=== PATIENT | male | born 2000 | race Two or more races ===

== ENCOUNTER 2018-02-13 23:25 | Emergency (ER) | payer OTHER ==
[~2018-02-13] VITALS: Ht 167.6 cm; Wt 68.2 kg
[2018-02-13 23:44] VITALS: BP 150/78
== END 2018-02-14 00:03 | disposition home or self-care (01) ==
LOC: ER 23:27
DX: M54.2 Cervicalgia (principal); F12.90 Cannabis use, unspecified, uncomplicated
CPT/HCPCS: 99281

== ENCOUNTER 2024-10-23 19:51 | Emergency (ER) | payer SELFPAY ==
[~2024-10-23] VITALS: Ht 170.2 cm; Wt 59.8 kg
[2024-10-23] MEDS ORDERED: LIDOcaine 1% 30ml preserv. free vial SQ STA (20:18)
[2024-10-23 20:52] VITALS: BP 134/80; PULSE 70; RESP 18; TEMP 98.6; O2SAT 99
== END 2024-10-23 20:53 | disposition home or self-care (01) ==
LOC: ER 19:52
DX: S01.511A Laceration without foreign body of lip, initial encounter (principal); F12.90 Cannabis use, unspecified, uncomplicated; X58.XXXA Exposure to other specified factors, initial encounter; Y93.71 Activity, boxing; Y92.89 Other specified places as the place of occurrence of the external cause; Y99.8 Other external cause status
CPT/HCPCS: 12011; 12013; 99282; A6449

== ENCOUNTER 2025-07-09 22:46 | Inpatient (IN) | payer OTHER ==
[~2025-07-09] VITALS: Ht 167.6 cm; Wt 70.0 kg
--- NOTE | 2025-07-09 23:28 | RADIOLOGY REPORT ---
CLINICAL HISTORY: CP. TECHNIQUE: Single frontal view of the chest was obtained. COMPARISON: None available. FINDINGS: DEVICES/LINES/TUBES: None. LUNGS: Clear. PLEURA: No pneumothorax or pleural effusion. MEDIASTINUM/OTHER: Normal heart size and mediastinal contours. Trachea is midline. BONES: No acute osseous abnormality. Multiple fractured median sternotomy wires. UPPER ABDOMEN: Unremarkable. OTHER: Multiple surgical clips project over the mediastinum. IMPRESSION: No acute cardiopulmonary process.
[2025-07-09 23:32] LABS: MEAN PLATELET VOLUME 9.6 FL (7.4-10.4); RED CELL DISTRIBUTION WIDTH 13.7 % (11.5-14.5)
[2025-07-09 23:34] LABS: CREATININE 1.80 MG/DL (0.60-1.10); eCRCL 56 ML/MIN; eGFR 46 ML/MIN
[2025-07-09 23:40] LABS: TOTAL CARBON DIOXIDE 9.6 MMOL/L (24-32)
[2025-07-10] MEDS ORDERED: dextrose 50%-water 50ml dispensing syringe IV PRN (00:05)
[2025-07-10] MEDS ORDERED: potassium Cl 40MEQ/1/2NS 520ml 520 ML IV PRN (00:05)
[2025-07-10] MEDS ORDERED: ringers solution, lacted 1,000 ML IV SCH (00:05)
[2025-07-10] MEDS ORDERED: potassium Cl 40MEQ/270ML bag 270 ML IV PRN (00:05)
[2025-07-10] MEDS ORDERED: Insulin Reg/NS 100units/100mL 100 ML IV SCH (00:05)
[2025-07-10] MEDS ORDERED: magnesium sulf-water 2g/50mL 50 ML IV PRN (00:05)
[2025-07-10] MEDS ORDERED: sodium phos 15mmol/D5 255mL 255 ML IV PRN (00:05)
[2025-07-10] MEDS ORDERED: iohexol 300mg/ml 100ml inj. ONE (00:06)
[2025-07-10] MEDS: ringers solution, lacted 1,000 ML IV ONE (00:15)
[2025-07-10 00:39] LABS: PHOSPHORUS 7.5 MG/DL (2.3-4.5)
[2025-07-10] MEDS: ringers solution, lacted 1,000 ML IV SCH ×2 (00:45→02:54)
--- NOTE | 2025-07-10 01:06 | Physician Documentation ---
History of Present Illness ~ Chief Complaint: Seizure Stated Complaint: SEIZURE Time Seen by MD: 00:01 Mode of Arrival: POV HPI Patient is a very pleasant 24-year-old male that presents to the emergency department for evaluation of possible seizure generally feeling unwell and persistent nausea and vomiting x3 days. Patient reports that he has a very heavy drinker and has increased his alcohol consumption over the course of the last week drinking morning tonight. Patient reports he was not feeling well over the last couple of days so decided to stopped drinking yesterday. Since that time patient reports that he has become more nauseated progressive vomiting reports that he maybe had a seizure earlier today while walking to the restroom but is unsure. Patient denies any past medical history other than significant alcohol use and marijuana use. Patient does not take any medications. Patient reports that he has attempted to stop drinking 1 other time and experienced significant alcohol withdrawal during that time. Patient reports his abdomen feels very distended and full. Patient reports last bowel movement was yesterday although it was firm maybe considered to be constipation. Patient denies headache dizziness shortness of breath chest pain. Patient does report possible fever and chills over the last 24 hours. No other symptoms reported at this time. Medication Reconciliation Allergies: Coded Allergies: No Known Allergies (Unverified , 02/13/18) Past Medical History Past Medical History: *CARDIOVASCULAR* Other Past Surgical History: Heart surgery Alcohol Use: None Drug Use: marijuana Review of Systems ROS As stated above in the HPI, otherwise all systems are reviewed and negative. Physical Exam Vital Signs: Temperature: 97.6, Source: Oral, Heart Rate: 129, Respiratory Rat e: 24, BP: 168/106, Pulse Oximetry: 98, Weight: 70.000 Oxygen Flow Rate: 0 Physical Exam VITALS: Reviewed and as above. GENERAL: Alert, no apparent distress. HEENT: Normocephalic, atraumatic, PERRL, EOMI, dry mucosa, no erythema RESPIRATORY: Lungs clear, normal breath sounds, no respiratory distress. CHEST: No accessory muscle use, no retractions CV: Regular rate, rhythm, no edema, no murmur, No: JVD GI: Mildly firm and tender with palpation, bowels sounds present, no rebound, guarding, or rigidity. BACK: No CVA tenderness, or swelling MUSCULOSKELETAL No deformities, no edema SKIN: Warm and dry, no rash NEURO: Oriented x4, No motor or sensory deficit, mildly tremulous during examination. PSYCH: Normal mood and affect, no agitation Progress Results/Orders Results/Orders Orders - GELACIO EUBANKS MD Chest,Single View (07/09/25 23:01) Monitor (07/09/25 23:01) Saline Lock (07/09/25 23:01) Oxygen (07/09/25 23:01) Culture Blood (07/10/25 00:22) Saline Lock (07/10/25 00:22) Completed Orders - GELACIO EUBANKS MD Chest,Single View (07/09/25 23:01) Cbc/Diff (07/09/25 23:) Electrocardiogram (07/09/25 23:) Hs Troponin I W Calculations (07/09/25 23:01) CMP (07/09/25 23:09) Lipase (07/09/25 23:09) MG (07/09/25 23:09) PHOS (07/09/25 23:09) Thiamine Tablet (Thiamine Tablet) (07/10/25 08:00) Hgb A1c (07/09/25 23:09) Ua W/Microscopic, Cult If Ind (07/10/25 01:57) Medications Received in ER Medications (Trade) Dose Ordered Sig/Sergio Route PRN Reason Start Time Stop Time Status Last Admin Dose Admin Lactated Ringer's 1,000 ml @ 1,000 mls/hr Q1H IV 07/10/25 00:05 07/10/25 01:02 DC 07/10/25 00:45 1,000 MLS/HR (Ativan inj) 1.5 mg ONCE ONCE IV 07/10/25 00:55 07/10/25 00:59 DC 07/10/25 01:23 1.5 MG Vital Signs 07/09/25 07/10/25 07/10/25 07/10/25 22:53 00:02 00:08 01:23 Temp 97.6 97.6 Pulse 160 129 Resp 18 24 22 B/P (MAP) 152/94 168/106 (126) Pulse Ox 98 98 O2 Flow Rate 0 0 Laboratory Tests Test 07/09/25 23:09 07/10/25 01:08 White Blood Count 19.6 H Red Blood Count 5.62 Hemoglobin 17.6 Hematocrit 52.9 H Mean Corpuscular Volume 94.1 Mean Corpuscular Hemoglobin 31.3 H Mean Corpuscular Hemoglobin Concent 33.3 Red Cell Distribution Width 13.7 Platelet Count 329 Mean Platelet Volume 9.6 Neutrophils (%) (Auto) 83.2 H Lymphocytes (%) (Auto) 6.2 L Monocytes (%) (Auto) 10.5 Eosinophils (%) (Auto) 0.1 Basophils (%) (Auto) 0 Neutrophils # (Auto) 16.3 H Lymphocytes # (Auto) 1.2 Monocytes # (Auto) 2.1 H Eosinophils # (Auto) 0.0 Basophils # (Auto) 0.0 CBC Comment Sodium Level 139 Potassium Level 3.8 Chloride Level 98 L Carbon Dioxide Level 9.6 *L Anion Gap 31 H Blood Urea Nitrogen 18 Creatinine 1.80 H Estimated GFR/1.73 m2 46 BUN/Creatinine Ratio 10.0 Glucose Level 244 H Hemoglobin A1c 5.6 Lactic Acid Level 18.8 *H Calcium Level 9.7 Phosphorus Level 7.5 H Magnesium Level 2.6 H Total Bilirubin 0.9 Aspartate Amino Transf (AST/SGOT) 27 Alanine Aminotransferase (ALT/SGPT) 23 Alkaline Phosphatase 108 Troponin I High Sensitivity 37 Total Protein 8.9 H Albumin 4.6 Globulin 4.3 Albumin/Globulin Ratio 1.1 Lipase > 375 H Procalcitonin < 0.05 Chemistry Comments Glucometer 137 H Medical Decision Making Additional information obtaine: other Findings Chief Complaint: Nausea, vomiting, and possible seizure History of Present Illness: 24-year-old male with heavy alcohol use disorder presents with 3 days of nausea and vomiting after abrupt cessation of alcohol consumption. Patient reports escalating alcohol use over the past week with consumption from morning to night. He stopped drinking yesterday due to feeling unwell and subsequently developed progressive nausea, vomiting, and a witnessed possible seizure event today while ambulating to the restroom. Patient endorses history of prior alcohol withdrawal with significant symptoms during previous cessation attempt. Associated symptoms include abdominal distension, constipation (last BM yesterday, firm), and subjective fever/chills over 24 hours. Denies headache, dizziness, shortness of breath, or chest pain. Past Medical History: Alcohol use disorder, marijuana use Medications: None Physical Examination: Vital Signs: Tachycardic, hypertensive (systolic >170 mmHg), normal respiratory rate, normal oxygen saturation General: Alert and oriented after treatment CIWA-Ar Score: 15 (indicating severe alcohol withdrawal) [1-3] Diagnostic Studies: Glucose: >200 mg/dL Anion gap: >30 (elevated) White blood cell count: >19,000/?L (leukocytosis) Lactate: Pending ABG: Pending Emergency Department Course: IV fluid resuscitation: 2 liters lactated Ringer's with improvement in heart rate Lorazepam 1.5 mg IV administered for alcohol withdrawal Sepsis alert activated given leukocytosis and fever Empiric broad-spectrum antibiotics: Piperacillin-tazobactam 4.5 g IV and vancomycin IV Assessment and Clinical Reasoning: This patient presents with severe alcohol withdrawal syndrome complicated by possible alcoholic ketoacidosis and concern for sepsis. The CIWA-Ar score of 15 indicates severe alcohol withdrawal requiring hospital admission and close monitoring. [1-3] The patient has multiple high-risk features for complicated withdrawal including history of prior severe withdrawal, possible withdrawal seizure during current episode, and marked autonomic hyperactivity (tachycardia, hypertension). [1][4] Approximately 10% of patients with alcohol withdrawal experience seizures, and one-third of those with untreated withdrawal seizures progress to delirium tremens. [5] Hospital admission is strongly indicated for patients with CIWA-Ar scores ?15, history of withdrawal seizures, and current seizure activity. [2][6] The laboratory findings of hyperglycemia, markedly elevated anion gap (>30), and recent alcohol cessation with poor oral intake are highly suggestive of alcoholic ketoacidosis (AKA). [7-8] AKA commonly presents with abdominal pain, nausea, vomiting, and anion gap metabolic acidosis in patients who have recently stopped drinking. [7] The elevated glucose (>200 mg/dL) can occur in AKA, though glucose is typically low, normal, or mildly elevated. [8] The predominant ketone body in AKA is ?-hydroxybutyrate, which may not be detected by standard urine ketone testing. [7][9] The leukocytosis (WBC >19,000/?L) and subjective fever raise concern for concurrent infection/sepsis, which is appropriate given that patients with alcohol use disorder are at increased risk for infections and sepsis can coexist with alcohol withdrawal. [1][7] The empiric broad-spectrum antibiotic coverage is reasonable pending further evaluation. Medical Decision Making: Admission Diagnosis: Severe alcohol withdrawal syndrome with seizure Alcoholic ketoacidosis (suspected) Sepsis (rule out) Alcohol use disorder Admission Status: Inpatient admission to monitored unit Rationale for Admission: CIWA-Ar score of 15 indicating severe withdrawal requiring close monitoring and benzodiazepine therapy [1-3] History of withdrawal seizure during current episode - high risk for progression to delirium tremens [4-5] Prior history of severe alcohol withdrawal Suspected alcoholic ketoacidosis requiring IV fluid resuscitation and dextrose therapy [7-8] Concern for sepsis requiring antibiotics and monitoring Marked autonomic instability (tachycardia, severe hypertension) Treatment Plan: Alcohol Withdrawal Management: Continue CIWA-Ar protocol with symptom-triggered benzodiazepine dosing (lorazepam preferred given possible liver involvement) [1][3][10] Thiamine 100 mg IV prior to glucose administration to prevent Wernicke's encephalopathy [1] Folate and multivitamin supplementation [2] Monitor for progression to delirium tremens (typically occurs 72-96 hours after last drink) [11] Low-stimulation environment Seizure precautions and close neurologic monitoring [4] Alcoholic Ketoacidosis Management: IV fluid resuscitation with dextrose-containing fluids (5% dextrose in 0.9% normal saline) to terminate ketogenic process [7] Target dextrose administration rate of 7.0-7.5 g/hour [7] Electrolyte repletion (potassium, magnesium, phosphorus) as needed [7-8] Avoid exogenous insulin administration [7] Serial monitoring of anion gap, glucose, and electrolytes Obtain ?-hydroxybutyrate level if available for confirmation [7][9] Sepsis Evaluation: Continue broad-spectrum antibiotics (piperacillin-tazobactam and vancomycin) pending culture results Complete sepsis workup including blood cultures, urinalysis, chest imaging Monitor lactate and complete ABG analysis Reassess antibiotic need based on clinical course and culture data Monitoring: Continuous telemetry monitoring [facility]-Ar assessments every 1-2 hours initially [2][4] Serial vital signs Strict intake and output Serial metabolic panels and lactate levels Disposition Planning: Anticipate 5-7 day hospitalization for alcohol withdrawal management [11] Substance use disorder consultation for long-term treatment planning Initiate discussion regarding pharmacotherapy for alcohol use disorder upon stabilization [1] Complexity of Medical Decision Making: High This case involves multiple diagnoses with significant risk of morbidity and mortality. The patient requires intensive monitoring and management of severe alcohol withdrawal with seizure activity, suspected alcoholic ketoacidosis with severe metabolic derangement, and possible sepsis. The decision-making involves extensive diagnostic workup, multiple treatment modalities, and high risk for complications including delirium tremens (5-10% mortality rate). [2] Close coordination of care and frequent reassessment are essential. Differential Dx:Considerations: Include: Hyperventilation, Psychogenic seizure, Due to alcohol withdrawl, Anticonvulsant withdrawl, Due to closed head injury, Due to CVA/TIA, Due to drug ingestion, Due to eclampsia, Due to hypocalcemia, Due to hypoglycemia, Due to hyponatremia, Due to hypoxemia, Idiopathic, Due to mass lesion, Due to meningitis, Syncope, Encephalopathy, Epilepsy-break through, Epilepsy-status, Other Departure Disposition: 30 STILL A PATIENT Impression: Primary Impression: Alcohol withdrawal syndrome Additional Impression: Necrotizing pancreatitis Condition: Stable Referrals: NO PRIMARY CARE PROVIDER (PCP) Education Educated: Patient Educated regarding: diagnosis, treatment, need for follow up Signature Scribe Signature: A Attestation: Scribed for Gelacio Eubanks MD by SUSAN Nur . 07/10/25 01:18 MIMI MICHAEL Jul 10, 2025 01:06 GELACIO EUBANKS MD Jul 10, 2025 08:05
--- NOTE | 2025-07-10 01:40 | RADIOLOGY REPORT ---
EXAM: CT CT CHEST ABDOMEN PELVIS IV CON W/ IV CONTRAST History: Sepsis, infection source Comparison Study: DI CHEST,SINGLE VIEW on DOS: 07/09/25 TECHNIQUE: A digital oriental medicine practitioner image was obtained. During the uneventful, intravenous administration of contrast material, multislice data acquisition was obtained through the chest, abdomen, and pelvis. The data set was subsequently reconstructed into axial, coronal, and sagittal images. Radiation Dose : CTDI vol 11.28 mGy, DLP 1104.35 mGy*cm. Findings: CT chest: Evaluation is degraded by respiratory motion. Lungs: The lungs are clear. Pleura: Unremarkable Heart/Great vessels: No cardiomegaly or pericardial effusion. The aorta is unremarkable. Mediastinum: Unremarkable. Soft tissues/Bones: Unremarkable CT abdomen/pelvis: Liver: Unremarkable. Spleen: Unremarkable. Pancreas: There is diffuse peripancreatic fluid/stranding. There are regions of low attenuation within the pancreas. Gallbladder: There is mild pericholecystic fluid. Adrenals: Unremarkable. Kidneys: Unremarkable. Pelvic Viscera: Mild wall thickening about the urinary bladder. Vasculature: Unremarkable. Retroperitoneum: Mild abdominopelvic ascites. Bowel: No bowel obstruction. Portions of the bowel are decompressed, limiting assessment. The appendix is normal. Musculoskeletal: Unremarkable. Soft tissues: Unremarkable. Impression: 1. Findings as above suggestive of acute pancreatitis in the appropriate clinical setting. There are regions of low attenuation within the pancreas suspicious for pancreatic necrosis. Consider MRI of the abdomen in further assessment as clinically indicated. Consider right upper quadrant ultrasound for further assessment of the gallbladder. 2. Mild abdominopelvic ascites. 3. Mild wall thickening about the urinary bladder, clinical correlation is suggested to exclude cystitis.
[2025-07-10] MEDS: piperacillin/tazo 3.375gm/50ml 50 ML IV ONE (01:58)
--- NOTE | 2025-07-10 02:03 | HISTORY AND PHYSICAL-Residence ---
History & Physical Providers to CC Resident Creating Document: VALENTINE PINTO RES ~ History of Present Illness Reason for Admit\Complaint: ETOH Withdrawal History of Present Illness Patient is a 24-year-old male with no significant past medical history but a two year history of alcohol use disorder presents with nausea, vomiting, and abdominal pain. He reports drinking approximately two tall cans of vodka daily for the past two years and stopped drinking yesterday. Since then, he approximately 15 episodes of nonbloody vomiting on Thursday. His CIWA score is 21. His roommate witnessed an episode in which the patient lost consciousness and his eyes rolled upward, followed by a 5 minutes of confusion. There was no reported tongue biting, urinary, or fecal incontinence. He also reports abdominal pain for the past two days, described as periumbilical and epigastric, intermittent, cramping in nature, without clear aggravating or relieving factors and not related to food intake. The pain does not radiate. He has not passed stool or flatus since mid day Thursday. He denies chest pain, dyspnea, diarrhea, hematemesis, melena, or dysuria. Allergies: Coded Allergies: No Known Allergies (Unverified , 02/13/18) Past Medical History Past Medical History No significant past medical history except an episode of alcohol withdrawal in the past. 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 Drinks two tall cans of vodka for the past two years. Denies smoking cigarettes. Endorses using marijuana. Alcohol Use: None Drug Use: Marijuana ROS All Other Systems: Reviewed and Negative ROS As stated above in the HPI, otherwise all systems are reviewed and negative. Exam Vitals: Vital Signs Date Time Temp Pulse Resp B/P (MAP) Pulse Ox O2 Delivery O2 Flow Rate FiO2 07/10/25 01:35 100 16 179/129 (146) 99 0 07/10/25 00:08 97.6 General: Anxious and agitated HEENT: Conjunctiva pink, Sclera clear, Mucus Membranes moist. Neck: Supple without masses and tenderness. Resp: Unlabored. Lungs clear to auscultation bilaterally. Heart: Tachycardic normal S1 and S2 without murmur, rub or gallop. Abdomen: Abdominal tenderness, more prominent in the epigastric region. Bowel sounds sluggish Extremities: No cyanosis,clubbing or edema. Skin: Warm and Dry. Diagnostic Data Last Recorded Lab Results: 07/09/25 2309 07/10/25 0242 Advance Care Planning Advanced Care plannin - 30 Minutes Additional Plan 1. . Severe acute necrotizing pancreatitis Likely alcohol-induced; CT suspicious for necrosis. The marked leukocytosis, extreme lactate elevation, and JEAN CLAUDE strongly suggests infected necrosis. Admitted to PCU with telemetry Keep NPO IV morphine for pain; Zofran and Reglan PRN Aggressive IV hydration; NS to 50 mL/hour Trend CBC, CMP, calcium, CRP, lactate Zosyn Monitor for complications; ARDS, shock, abscess, pseudocyst 2. Severe high anion gap metabolic acidosis-lactic acidosis HC03 9.6, HCT 31, lactate 18.8 Alcoholic ketoacidosis plus lactic acidosis: The severe VERONICA likely reflects both alcoholic ketoacidosis and lactic acidosis from tissue hypoperfusion. Aggressive IV fluid; received 2 L of LR bolus in ER, continue LR to 250 mL/hour Serial lactate and BMP Evaluate for additional causes if not improving 3. KRAIG (Alcohol Withdrawal Symptoms): CIWA score 21 Possible withdrawal-related seizure/syncope Autonomic symptoms (e.g., palpitations, sweating, tachycardia, elevated blood pressure) Tremor, hyperreflexia, Anorexia, nausea, vomiting Symptom-triggered regimen for KRAIG - Ativan 2 mg IV as needed for CIWA-Ar >10 (parameters included in the order). Continue thiamine and folic acid IV manager services consulted Fall/seizure precautions in place 4. Acute kidney injury Creatinine 1.8, baseline unknown Likely prerenal from hypovolemia and systemic illness Continue volume resuscitation Strict I&Os; consider Hernandez Avoid nephrotoxins renally dose meds Trend BMP and urine output Nephrology consult if worsening or oliguria develops Code status: Full code DVT prophylaxis: Camelia Pinto Internal Medicine Resident, PGY-3 Addendum I personally reviewed the chart, labs and imaging and reviewed the patient with the team. I agree with the assessment and plan as documented by the resident. Patient was seen through remote audio-visual assessment through HIPAA compliance setup. Date of Service: Jul 10, 2025 Billing Provider: PIPE CARROLL MD, SHAMS, JOSE Jul 10, 2025 02:03 PIPE CARROLL MD Jul 10, 2025 03:23
[2025-07-10 02:15] LABS: LEUKOCYTE ESTERASE ,URINE NEGATIVE (Neg); NITRITES, URINE NEGATIVE (Neg); OCCULT BLOOD,URINE MODERATE (Neg)
[2025-07-10 02:21] LABS: UA COLLECTION TYPE CLN CATCH MIDSTREAM
[2025-07-10 02:29] LABS: SQUAMOUS EPITHELIAL CELL,UR NONE SEEN /LPF (FEW)
[2025-07-10] MEDS ORDERED: metoclopramide 5 mg/ml inj IV PRN (02:30)
[2025-07-10 03:10] LABS: CHOL/HDL RATIO 1.5 (0.00-4.99); CREATININE 1.10 MG/DL (0.60-1.10); LDL CHOLESTEROL 36 MG/DL (50-100); TOTAL CARBON DIOXIDE 21.5 MMOL/L (24-32); eCRCL 92 ML/MIN; eGFR 81 ML/MIN
[2025-07-10] MEDS: morphine 4 MG/ML inj SYRINge IV ONE (04:47)
[2025-07-10] MEDS: ondansetron/PF 4mg/2ml inj IV PRN (04:50)
--- NOTE | 2025-07-10 05:27 | ELECTROCARDIOGRAPH REPORT ---
[facility] Test Date: 2025-07-09 Test Time: 23:05:26 Pat Name: CINTIA MILLER Department: EMERGENCY ROOM Room: ED 4 1 Gender: M [employer] Teacher: MARSHA : 2000 Requested By: BRITTANI EUBANKS Order Number: [id number] Reading MD: Dr. Mark Rodriguez Measurements Intervals [place] Rate: 159 P: 90 AR: 91 QRS: 122 QRSD: 89 T: -43 QT: 274 QTc: 446 Interpretive Statements Sinus tachycardia Right axis deviation Repol abnrm suggests ischemia, inferior leads Electronically Signed On 07-10-2025 11:17:[address] Mark Rodriguez Please click the below link to view image of tracing.
[2025-07-10] MEDS: thiamine 100mg/ml 2ml inj. IV SCH (07:34)
[2025-07-10] MEDS: enoxaparin 40mg/0.4ml syringe SUBCUT SCH (07:36)
[2025-07-10] MEDS ORDERED: piperacillin/tazo 4.5gm/100ml 100 ML IV SCH (08:00)
[2025-07-10] MEDS: folic acid 1mg/0.2ml inj IV SCH (08:34)
[2025-07-10] MEDS: piperacillin/tazo 3.375gm/50ml 50 ML IV SCH (08:42)
[2025-07-10] MEDS ORDERED: NO HOME MEDS (08:49)
--- NOTE | 2025-07-10 10:36 | RADIOLOGY REPORT ---
INDICATION: pancreatitis, looking for biliary tree, gall stones TECHNIQUE: Multiple real-time sonographic images of the abdomen were obtained. COMPARISON: CT scan of the abdomen pelvis performed earlier same date. FINDINGS: The liver is increased in echogenicity. The liver measures 16.7 cm. No intrahepatic biliary ductal dilatation is noted. The gallbladder wall measures 0.3 cm and is unremarkable. No gallstones or sludge is seen. The common duct measures 0.3 cm and is unremarkable. Trace pericholecystic fluid is noted. Negative sonographic Cam's sign. The right kidney measures 9.6 cm. No hydronephrosis. The pancreas is not well visualized due to obscuration from bowel gas. The visualized portions of the IVC and aorta are grossly unremarkable. Trace perihepatic free fluid. IMPRESSION: 1. No gallstones or findings to suggest acute cholecystitis. 2. Pericholecystic and perihepatic fluid likely related to acute pancreatitis seen on CT same date. 3. Hepatic steatosis.
[2025-07-10 13:34] LABS: MEAN PLATELET VOLUME 9.4 FL (7.4-10.4); RED CELL DISTRIBUTION WIDTH 13.4 % (11.5-14.5)
[2025-07-10 14:06] LABS: CREATININE 0.88 MG/DL (0.60-1.10); TOTAL CARBON DIOXIDE 28.9 MMOL/L (24-32); eCRCL 115 ML/MIN; eGFR > 90 ML/MIN
[2025-07-10 17:44] VITALS: BP 170/125; PULSE 101; RESP 20; TEMP 98.5; O2SAT 98
== END 2025-07-10 17:44 | disposition short-term general hospital (02) | DRG 439 ==
LOC: ER 22:46 → ED HOLD 07-10 01:26
PROVIDERS: ADMIT Internal Medicine Sleep Medicine; ATTEND Internal Medicine Sleep Medicine
PROC: BW241ZZ Computerized Tomography (CT Scan) of Chest and Abdomen using Low Osmolar Contrast (ICD-10-PCS; principal; 2025-07-10)
DX: K85.91 Acute pancreatitis with uninfected necrosis, unspecified (principal); E87.29 Other acidosis; R56.9 Unspecified convulsions; N17.9 Acute kidney failure, unspecified; F10.239 Alcohol dependence with withdrawal, unspecified
CPT/HCPCS: 36415; 71045; 71260; 74177; 76700; 80048; 80053; 80061; 81001; 82948; 83036; 83605; 83690; 83735; 84100; 84145; 84484; 85025; 86140; 87040; 93005; 96361; 96374; 99285; G0378; J1171; J2060; J2270; J2405; J2543; J3411; J3490; J7030; J7120; Q9967